=== PATIENT | male | born 1995 | race Caucasian/White ===

== ENCOUNTER 2024-10-25 23:25 | Emergency (ER) | payer SELFPAY ==
[2024-10-26] VITALS: BP 126/100; PULSE 89; RESP 16; TEMP 37.1; O2SAT 98; BMI 25.9
--- NOTE | 2024-10-26 01:17 | ED_ITS ---
HPI - Extremity Problem General Chief complaint: Extremity Problem,Nontraumatic Stated complaint: rt leg tingling, bulging disc Time Seen by Provider: 10/26/24 01:05 Source: patient and RN notes reviewed Mode of arrival: Ambulatory Limitations: no limitations History of Present Illness HPI Narrative: 29-year-old male no reported medical issues who presents with complaint of low back pain that radiates down his right leg with some numbness and tingling. States he was told he has a bulging disc in his back likely causing his symptoms. He has had symptoms for about a month to month and a half. States that recently he was had a dog and a cat in his chest lying supine and went to sit up which tweaked his back and increased his pain. He states he has been taking acetaminophen and extra-strength ibuprofen but without much improvement. He denies any new weakness in his lower extremity. He does have some numbness and tingling but states he can feel it. No loss of bowel or bladder control, no saddle anesthesia. Patient denies any other recent injuries or trauma. No fevers. Patient has not had any other known injuries but states he works for [employer] and did a lot of lifting he currently works in the food service worker industry. Patient denies any surgeries. No daily prescription medications. Does vape tobacco, occasional alcohol, uses marijuana no IV or injection drugs. Related Data Previous Rx's Medication Instructions Recorded gabapentin 300 mg capsule 300 mg PO TID #30 caps 10/26/24 hydrocodone 5 mg-acetaminophen 325 1 tab PO Q6H PRN pain #7 tabs 10/26/24 mg tablet Allergies Allergy/AdvReac Type Severity Reaction Status Date / Time No Known Drug Allergies Allergy Verified 10/25/24 23:59 Review of Systems Review of Systems ROS Unobtainable: All systems reviewed & are unremarkable except as noted in HPI and below Patient History Social History Smoking Status: Current every day smoker Smoking Status: Current every day smoker tobacco type: cigarettes and vaping Exam Narrative Exam Narrative: GENERAL: Alert and oriented x three, male in mild distress HEENT: Head normocephalic, atraumatic, EOMI, pupils reactive, face symmetric, moist mucous membranes NECK: Supple, full range of motion CARDIOVASCULAR: Regular rate and rhythm without murmurs, rubs or gallops. RESPIRATORY: Breath sounds equal bilaterally, no wheezes rales or rhonchi. ABDOMEN: Soft, nontender. Normoactive bowel sounds all 4 quadrants. No guarding or rebound, rigidity, no mass : No CVA tenderness BACK: No cervical, thoracic or lumbar vertebral point tenderness. Patient has normal range of motion. Patient's gait is normal. Rectal exam is deferred. Muscle strength is 5/5 in lower extremities, DTRs are 2/4 and lower extremities. Dorsalis pedis and tibialis pulses are 2+ and lower extremities. Sensation is intact in the lower extremities. EXTREMITIES: Normal range of motion, no clubbing or edema. Neurovascularly intact NEUROLOGICAL: Cranial nerves II through XII grossly intact. Moving all extremities SKIN: Warm, dry, no petechiae, no rashes or lesions. Initial Vital Signs Initial Vital Signs: Vital Signs Temperature 98.8 F 10/26/24 00:00 Pulse Rate 89 10/26/24 00:00 Respiratory Rate 16 10/26/24 00:00 Blood Pressure 126/100 H 10/26/24 00:00 Pulse Oximetry 98 10/26/24 00:00 Oxygen Delivery Method Room Air 10/26/24 00:00 Course Orders Ordered: Discontinued Medications Ketorolac Tromethamine (Ketorolac 30 Mg/Ml Vial) 15 mg IV NOW ONE Stop: 10/26/24 01:35 Last Admin: 10/26/24 01:39 Dose: Not Given Documented By: Ketorolac Tromethamine (Ketorolac 30 Mg/Ml Vial) 30 mg IM NOW ONE Stop: 10/26/24 01:38 Last Admin: 10/26/24 01:45 Dose: 30 mg Documented By: Vital Signs Vital signs: Vital Signs - 8 hr 10/26/24 00:00 10/26/24 01:52 Temperature 98.8 F Pulse Rate 89 85 Respiratory Rate 16 16 Blood Pressure 126/100 H 121/82 Pulse Oximetry 98 96 Oxygen Delivery Method Room Air Room Air MDM - Extremity (Nontraumatic) MDM Narrative Medical decision making narrative: 29-year-old male describing symptoms consistent with sciatica or radiculopathy patient notes exacerbated recently by trying to sit up from a supine position with a dog and a cat on his back. Patient does not have any red flag symptoms. Has been taking acetaminophen and extra-strength ibuprofen but without much improvement. Discussed can try some gabapentin we will give a short course of narcotics if this is inadequate. Did recommend patient follow up with primary care as he has only been seen in urgent care possibly follow up with PMR. Discussed return precautions all questions answered. Discharge Plan Departure Patient Disposition: Home Clinical Impression: Radicular low back pain Instructions: DI for Lumbar Radiculopathy Activity Restrictions/Additional Instructions: Follow up with primary care or PMR, contact is included below. Please call to set up an appointment. You can take gabapentin 1 tablet every 8 hours, this medication can be titrated upwards if it is helpful in his most useful if taken regularly. If inadequate for pain. You can take [place] 1 tablet every 6 hours as needed for pain. You can take ibuprofen with this medication up to 600 mg every 6 hours. This medication can make you sleepy do not drive, perform hazardous activities or make any major decisions while taking it. This medication will make you constipated please take a stool softener once to twice daily until stools are soft and regular. [facility] [place]. Please return for fevers, rapidly worsening symptoms, loss of bowel or bladder control, new weakness, loss of sensation, inability to lift or move your leg, elbow and a walker other new or concerning changes. Prescriptions: New gabapentin 300 mg capsule 300 mg PO TID Qty: 30 0RF hydrocodone-acetaminophen 5-325 mg tablet 1 tab PO Q6H PRN (Reason: pain) Qty: 7 0RF Referrals: Edenilson Olson DO [Physician] - Concha Morales MD [Primary Care Provider] - Stand Alone Forms: Patient Portal/API/Survey
[2024-10-26] MEDS: KETOROLAC 30 MG/ML VIAL IM (01:45)
[2024-10-26 01:52] VITALS: BP 121/82; PULSE 85; RESP 16; O2SAT 96
== END 2024-10-26 01:52 | disposition home or self-care (01) ==
PROVIDERS: Emergency Provider Emergency Medicine; Family Provider Family Medicine; PCP Family Medicine
DX: M54.50 Low back pain, unspecified (principal); F17.210 Nicotine dependence, cigarettes, uncomplicated
CPT/HCPCS: 96372; 99283; 99284; J1885

== ENCOUNTER 2024-11-13 13:30 | Emergency (ER) | payer OTHER, SELFPAY ==
[2024-11-13 13:51] VITALS: BP 119/78; PULSE 93; RESP 16; TEMP 36.6; O2SAT 100; BMI 25.9
--- NOTE | 2024-11-13 14:56 | PC.NURSE ---
Patient states that he had 4 near falls 2 to 3 months ago, and then lifted a whole bunch of heavy things and injured his back. Due to lack of insurance he didn't get assessed at that time, but was seen a couple weeks ago and prescribed muscle relaxers. He reports shooting pains down his right leg and says that his left leg is hurting now due to compensating for the right leg pain.
--- NOTE | 2024-11-13 16:28 | ED_ITS ---
<Statement entered by Juliano Winkler DO - 11/13/24 16:55> Dr. Winkler: I was immediately available in the department for consultation. I did not actually see the patient. HPI - Back Pain/Injury General Chief Complaint: Back Pain/Injury Stated Complaint: Lower back / Bilateral leg pain Time Seen by Provider: 11/13/24 15:15 History of Present Illness HPI Narrative: 29-year-old male presents to the ED with ongoing lower back pain for the last 2 months. Patient was seen in the ED on 10/25/24 for the same issue, prescribed short-term pain medications and advised to seek PCP consultation. Patient returns to the ED today for the same ongoing symptoms which is lower back pain, radiating down the back of his right leg. No numbness, tingling, weakness. No urinary hesitancy, urinary incontinence. No saddle paresthesias. No fever, chills. No new trauma. Related Data Previous Rx's Medication Instructions Recorded gabapentin 300 mg capsule 300 mg PO TID #30 caps 10/26/24 hydrocodone 5 mg-acetaminophen 325 1 tab PO Q6H PRN pain #7 tabs 10/26/24 mg tablet Allergies Allergy/AdvReac Type Severity Reaction Status Date / Time No Known Drug Allergies Allergy Verified 10/25/24 23:59 Review of Systems Constitutional Constitutional: Denies chills, Denies fatigue, Denies fever(s), Denies frequent falls, Denies lethargy and Denies weakness Eyes Eyes: Denies change in vision, Denies eye discharge, Denies irritation and Denies loss of vision ENT Ears, Nose, Mouth, and Throat: Denies change in voice, Denies dizziness, Denies neck pain, Denies sore throat and Denies throat swelling Cardiovascular Cardiovascular: Denies chest pain, Denies irregular heart rhythm, Denies lightheadedness, Denies palpitations, Denies dyspnea, Denies dyspnea on exertion and Denies orthopnea Respiratory Respiratory: Denies cough, Denies dyspnea, Denies dyspnea on exertion and Denies wheezing Gastrointestinal Gastrointestinal: Denies abdominal pain, Denies change in bowel habits, Denies diarrhea, Denies nausea and Denies vomiting Musculoskeletal Musculoskeletal: Denies neck pain and Denies numbness Comments: Low back pain, radiating to the right leg Integumentary/Breasts Skin/Breast: Denies pruritus, Denies erythema, Denies rash and Denies wounds Neurologic Neurologic: Denies behavioral changes, Denies confusion, Denies dizziness, Denies frequent falls, Denies loss of vision, Denies numbness and Denies weakness Psychiatric Psychiatric: Denies anxiety, Denies behavioral changes, Denies confusion, Denies depression, Denies homicidal ideation and Denies suicidal ideation Endocrine Endocrine: Denies fatigue, Denies flushing and Denies palpitations Hematologic/Lymphatic Hematologic/Lymphatic: Denies easy bruising Allergic/Immunologic Allergic/Immunologic: Denies urticaria, Denies throat swelling and Denies wheezing Patient History Social History Smoking Status: Current every day smoker Smoking Status: Current every day smoker tobacco type: cigarettes and vaping Exam Narrative Exam Narrative: Const General:?cooperative, healthy appearing and comfortable HENAK Head:?normal to inspection Ears:?hearing grossly normal bilaterally Nose:?external nose normal Face and sinus:?normal facial exam and sinuses nontender Mouth:?oral mucosae normal Throat:?posterior oropharynx normal Eyes General:?appearance normal, both eyes and all related structures Neck Neck:?normal visual inspection and no lymphadenopathy noted Resp Effort & Inspection:?normal respiratory effort Auscultation:?clear to auscultation bilaterally Cardio Rate:?regular rate Rhythm:?regular rhythm Musculoskeletal No midline tenderness to palpation. No paraspinal tenderness to palpation. Gait is normal. Neurovascularly intact. Neuro General:?patient alert, patient awake and patient oriented x3 Initial Vital Signs Initial Vital Signs: Vital Signs Temperature 97.8 F 11/13/24 13:51 Pulse Rate 93 H 11/13/24 13:51 Respiratory Rate 16 11/13/24 13:51 Blood Pressure 119/78 11/13/24 13:51 Pulse Oximetry 100 11/13/24 13:51 Oxygen Delivery Method Room Air 11/13/24 13:51 Course Vital Signs Vital signs: Vital Signs - 8 hr 11/13/24 13:51 Temperature 97.8 F Pulse Rate 93 H Respiratory Rate 16 Blood Pressure 119/78 Pulse Oximetry 100 Oxygen Delivery Method Room Air MDM - Back Pain/Injury MDM Narrative Medical decision making narrative: 29-year-old male presents to the ED with ongoing lower back pain for the last 2 months. History and physical exam consistent with ongoing lower back pain. Recommend ibuprofen, Tylenol, lidocaine patches, heat packs, rest. Recommend follow-up with PCP as soon as possible. Counseled patient that the PCP would be the best resource for him with respect to further evaluation and referrals. ED return precautions discussed with patient. Patient verbalized understanding. Medical records reviewed: Yes Discharge Plan Departure Patient Disposition: Home Clinical Impression: Back pain Qualifiers: Back pain location: low back pain Chronicity: acute Back pain laterality: right Sciatica presence: with sciatica Sciatica laterality: sciatica of right side Qualified Code(s): M54.41 - Lumbago with sciatica, right side Instructions: DI for Back Pain With Sciatica Activity Restrictions/Additional Instructions: You were evaluated in the ED today for lower back pain. It appears that this is an ongoing issue for which you were also seen 2 weeks ago. It is imperative that you follow-up with your primary care doctor for further evaluation referral to physical therapy. In the meanwhile, continue Tylenol and ibuprofen, lidocaine patches, heat packs. Return to the ED if you have worsening symptoms such as numbness, tingling, weakness. Prescriptions: No Action gabapentin 300 mg capsule 300 mg PO TID Qty: 30 0RF hydrocodone-acetaminophen 5-325 mg tablet 1 tab PO Q6H PRN (Reason: pain) Qty: 7 0RF Referrals: Concha Morales MD [Primary Care Provider] - Stand Alone Forms: Patient Portal/API/Survey
== END 2024-11-13 16:28 | disposition home or self-care (01) ==
PROVIDERS: Emergency Provider Student in an Organized Health Care Education/Training Program; Family Provider Family Medicine; PCP Family Medicine
DX: M54.41 Lumbago with sciatica, right side (principal)
CPT/HCPCS: 99281

== ENCOUNTER 2024-11-21 06:33 | Emergency (ER) | payer OTHER, SELFPAY ==
[2024-11-21 06:42] VITALS: BP 130/96; PULSE 99; RESP 24; TEMP 36.1; O2SAT 100; BMI 25.9
--- NOTE | 2024-11-21 06:46 | DI.CT.S_ITS ---
PROCEDURE: CT LUMBAR SPINE WO CON INDICATIONS: low back pain TECHNIQUE: Noncontrast 3 mm thick sections acquired from the T12 level to the sacrum. Sagittal and coronal reformats were constructed. For radiation dose reduction, the following was used: automated exposure control. COMPARISON: None. FINDINGS: Image quality: Excellent. Bones: There is normal bony alignment. No acute vertebral body compression fractures. No suspicious lytic or blastic bony lesions. No pars defects. Soft tissues: No retroperitoneal masses or hematomas. Visualized aorta is normal in caliber. Punctate right renal calculus. IMPRESSION: No visualized fracture or significant degenerative change. Dictated by: Lennie Nielsen M.D. on 11/21/2024 at 9:37 Approved by: Lennie Nielsen M.D. on 11/21/2024 at 9:38
--- NOTE | 2024-11-21 06:46 | ED.BACK ---
HPI - Back Pain/Injury <Juliano Winkler DO - Last Filed: 11/21/24 06:51> General Chief Complaint: Back Pain/Injury Stated Complaint: tingling in left leg, sharp pain in left toe Time Seen by Provider: 11/21/24 06:42 Source: patient History of Present Illness HPI Narrative: Patient is a 29-year-old male without any significant past medical history presents to the emergency department for persistent low back pain with radiation to his right leg, he has been seen here multiple times for the same, he states that he has an appointment with his primary care doctor tomorrow but given persistent symptoms he wanted to be evaluated today in the emergency department. States that he is still having the low back pain with radiates into his right leg, he states it is tingling but denies any actual weakness or loss of sensation. Patient denies any numbness to bilateral lower extremities, he states that he got very scared today because he felt tingling sensation to his left great toe. But denies any radiation of this to his left leg. He denies any bowel or urinary incontinence or retention. He denies any saddle paresthesias. Denies any new traumas or falls. Related Data Previous Rx's Medication Instructions Recorded gabapentin 300 mg capsule 300 mg PO TID #30 caps 10/26/24 hydrocodone 5 mg-acetaminophen 325 1 tab PO Q6H PRN pain #7 tabs 10/26/24 mg tablet gabapentin 300 mg capsule 300 mg PO TID #30 caps 11/21/24 hydrocodone 5 mg-acetaminophen 325 1 tab PO Q6H PRN pain #5 tabs 11/21/24 mg tablet prednisone 20 mg tablet 40 mg (2 x 20 mg) PO DAILY #8 tabs 11/21/24 Allergies Allergy/AdvReac Type Severity Reaction Status Date / Time No Known Drug Allergies Allergy Verified 10/25/24 23:59 Review of Systems <Juliano Winkler DO - Last Filed: 11/21/24 06:51> Review of Systems Narrative: General: Denies fever, chills, weight loss HEENT: Denies headache, eye drainage, eye irritation, head trauma, sore throat, voice change Cardiovascular: Denies any chest pain, palpitations, shortness of breath, tachycardia Respiratory: Denies any shortness of breath, cough, wheeze, stridor GI/: Denies any abdominal pain, nausea, vomiting, diarrhea, bright red blood per rectum, melanotic stools, urinary frequency, urinary retention, dysuria, hematuria MSK: Positive low back pain, positive right leg tingling Skin: Denies any rashes, lesions, discoloration Neuro: Denies any headache, lightheadedness, dizziness, fainting, weakness Psych: Denies SI/HI Patient History <Juliano Winkler DO - Last Filed: 11/21/24 06:51> Social History Smoking Status: Current every day smoker Smoking Status: Current every day smoker tobacco type: cigarettes and vaping Exam <Juliano Winkler DO - Last Filed: 11/21/24 06:51> Narrative Exam Narrative: General: Cooperative, comfortable, well-developed, not in acute distress HEENT: Normocephalic, atraumatic, PERRLA, normal sclera, eyelids normal, Neck: Active full range of motion, atraumatic Chest: Normal to inspection, negative crepitus, no overlying erythema ecchymosis Respiratory: Normal respiratory effort, not in acute respiratory distress, clear to auscultation bilaterally negative cough, wheeze, tachypnea, rhonchi, rales Cardiology: Regular rate rhythm negative gallop, murmur, rubs GI/: Normal to inspection, soft, nonrigid, no tenderness to palpation, exam deferred MSK: Full range of active range of motion of all 4 extremities, atraumatic, patient able to stand bear weight ambulate unassisted here in the emergency department, positive straight leg to the right, neurovascularly intact bilateral lower extremities no tenderness to palpation of the midline thoracic spine, minor tenderness to palpation of the paraspinal muscles on the right, however no overlying erythema ecchymosis or other gross deformity Skin: No rashes lesions noted Neuro: Alert awake oriented x3, moves all 4 extremities spontaneously, cranial nerves intact, able to answer all questions appropriately follows commands appropriately Psych: Cooperative, negative suicidal or homicidal ideations Initial Vital Signs Initial Vital Signs: Vital Signs Temperature 96.9 F L 11/21/24 06:42 Pulse Rate 99 H 11/21/24 06:42 Respiratory Rate 24 11/21/24 06:42 Blood Pressure 130/96 H 11/21/24 06:42 Pulse Oximetry 100 11/21/24 06:42 Oxygen Delivery Method Room Air 11/21/24 06:42 <Magi Connelly DO - Last Filed: 11/21/24 18:49> Initial Vital Signs Initial Vital Signs: Vital Signs Temperature 96.9 F L 11/21/24 06:42 Pulse Rate 99 H 11/21/24 06:42 Respiratory Rate 24 11/21/24 06:42 Blood Pressure 130/96 H 11/21/24 06:42 Pulse Oximetry 100 11/21/24 06:42 Oxygen Delivery Method Room Air 11/21/24 06:42 Course <Juliano Winkler DO - Last Filed: 11/21/24 06:51> Orders Ordered: Discontinued Medications Acetaminophen (Acetaminophen 325 Mg Tablet) 650 mg PO NOW ONE Stop: 11/21/24 06:47 Last Admin: 11/21/24 06:51 Dose: 650 mg Documented By: SANDEEP Diazepam (Diazepam 5 Mg Tablet) 5 mg PO NOW ONE Stop: 11/21/24 06:47 Last Admin: 11/21/24 06:52 Dose: 5 mg Documented By: SANDEEP Prednisone (Prednisone 20 Mg Tablet) 40 mg PO NOW ONE Stop: 11/21/24 06:47 Last Admin: 11/21/24 06:52 Dose: 40 mg Documented By: SANDEEP Vital Signs Vital signs: Vital Signs - 8 hr 11/21/24 06:42 Temperature 96.9 F L Pulse Rate 99 H Respiratory Rate 24 Blood Pressure 130/96 H Pulse Oximetry 100 Oxygen Delivery Method Room Air <Magi Connelly DO - Last Filed: 11/21/24 18:49> Orders Ordered: Discontinued Medications Acetaminophen (Acetaminophen 325 Mg Tablet) 650 mg PO NOW ONE Stop: 11/21/24 06:47 Last Admin: 11/21/24 06:51 Dose: 650 mg Documented By: SANDEEP Diazepam (Diazepam 5 Mg Tablet) 5 mg PO NOW ONE Stop: 11/21/24 06:47 Last Admin: 11/21/24 06:52 Dose: 5 mg Documented By: SANDEEP Prednisone (Prednisone 20 Mg Tablet) 40 mg PO NOW ONE Stop: 11/21/24 06:47 Last Admin: 11/21/24 06:52 Dose: 40 mg Documented By: SANDEEP Vital Signs Vital signs: Vital Signs - 8 hr 11/21/24 06:42 Temperature 96.9 F L Pulse Rate 99 H Respiratory Rate 24 Blood Pressure 130/96 H Pulse Oximetry 100 Oxygen Delivery Method Room Air MDM - Back Pain/Injury <Juliano Winkler, DO - Last Filed: 11/21/24 06:51> Differential Diagnosis Differential diagnosis: Likely lumbar radiculopathy, sciatica and strain of lumbar region [facility] Narrative Medical decision making narrative: 29-year-old male with a history of ongoing low back pain with sciatica/lumbar radiculopathy to the right for the past 2 months presents for persistent symptoms. He states that the symptoms are not getting any worse but are not getting better has an appointment with his primary care doctor tomorrow but given the fact that he started noticing tingling sensation to his left great toe he got worried and wanted to be evaluated. Patient has been seen here 2 times for the same, did obtain CT of his lumbar spine today. He denies any saddle paresthesias denies any bowel or urinary incontinence he is neurovascularly intact bilateral lower extremities. Patient did receive Valium prednisone and Tylenol here in the emergency department for symptomatic relief <Magi Connelly, DO - Last Filed: 11/21/24 18:49> [facility] Narrative Medical decision making narrative: 29-year-old male with a history of ongoing low back pain with sciatica/lumbar radiculopathy to the right for the past 2 months presents for persistent symptoms. He states that the symptoms are not getting any worse but are not getting better has an appointment with his primary care doctor tomorrow but given the fact that he started noticing tingling sensation to his left great toe he got worried and wanted to be evaluated. Patient has been seen here 2 times for the same, did obtain CT of his lumbar spine today. He denies any saddle paresthesias denies any bowel or urinary incontinence he is neurovascularly intact bilateral lower extremities. Patient did receive Valium prednisone and Tylenol here in the emergency department for symptomatic relief 11/21/24 Dr. Connelly [id number]: Patient signed out to myself by Dr. Winkler. Patient was seen and evaluated by myself. Head CT pending which shows mild spondylitic changes lumbar spine without acute traumatic injury intervertebral disc space narrowing L5-S1 with broad-based disc osteophyte complex and narrowing of the neural foramina posterior elements are intact. Patient has had some radicular symptoms but no symptoms today necessitating MRI or emergent surgery. Patient had Valium, prednisone and Tylenol here in the department. Discussed findings with patient need for follow up with primary care, discussed red flag symptoms. Patient has had some improvement in symptoms. He has an appointment tomorrow with Dr. Morales for his back. Discharge Plan Departure Patient Disposition: Home Clinical Impression: Lumbar radiculopathy Instructions: DI for Lumbar Radiculopathy Activity Restrictions/Additional Instructions: Follow up with Dr. Morales at your appointment tomorrow. You can take gabapentin 1 tablet every 8 hours as needed. This medication can be titrated upwards. Can continue with acetaminophen up to a 1000 mg every 6 hours and/or ibuprofen up to 600 mg every 6 hours as needed for pain. Take steroids until completed. Take this medication with food. [facility] [place] Please return for fevers, rapidly worsening symptoms, loss of bowel or bladder control, new weakness, loss of sensation, inability to lift or move your leg unable to ambulate or other new or concerning changes. Prescriptions: New gabapentin 300 mg capsule 300 mg PO TID Qty: 30 0RF prednisone 20 mg tablet 40 mg PO DAILY Qty: 8 0RF hydrocodone-acetaminophen 5-325 mg tablet 1 tab PO Q6H PRN (Reason: pain) Qty: 5 0RF No Action gabapentin 300 mg capsule 300 mg PO TID Qty: 30 0RF hydrocodone-acetaminophen 5-325 mg tablet 1 tab PO Q6H PRN (Reason: pain) Qty: 7 0RF Referrals: Concha Morales MD [Primary Care Provider] - Stand Alone Forms: Patient Portal/API/Survey
[2024-11-21] MEDS: ACETAMINOPHEN 325 MG TABLET 650 MG PO (06:51)
[2024-11-21] MEDS: predniSONE 20 MG TABLET 40 MG PO (06:52)
[2024-11-21] MEDS: diazePAM 5 MG TABLET PO (06:52)
[2024-11-21 08:18] VITALS: BP 127/75; PULSE 75; RESP 16; TEMP 36.6; O2SAT 99
== END 2024-11-21 08:19 | disposition home or self-care (01) ==
PROVIDERS: Emergency Provider Emergency Medicine; Family Provider Family Medicine; PCP Family Medicine
DX: M54.16 Radiculopathy, lumbar region (principal)
CPT/HCPCS: 72131; 99283; 99284

== ENCOUNTER 2024-12-08 14:20 | Emergency (ER) | payer OTHER, SELFPAY ==
[2024-12-08 14:30] VITALS: BP 115/84; PULSE 118; RESP 16; TEMP 37.1; O2SAT 98; BMI 25.9
[2024-12-08 16:13] LABS: Add Manual Diff / Slide Review NO; Basophils Absolute Auto 0 /uL (0-100); Basophils Percent Auto 0.3 % (0-2); Eosinophils Absolute Auto 0 /uL (0-450); Eosinophils Percent Auto 0.2 % (2-4); Hematocrit 42.1 % (41-53); Hemoglobin 14.4 g/dL (13.5-17.5); Lymphocytes Absolute Auto 800 /uL (1100-4500); Lymphocytes Percent Auto 5.4 % (25-40); Mean Corpuscular HGB Conc 34.1 % (30-36); Mean Corpuscular Hemoglobin 29.5 PG (26-34); Mean Corpuscular Volume 86.4 fL (80-100); Monocytes Absolute Auto 700 /uL (0-900); Monocytes Percent Auto 4.2 % (3-14); Neutrophils Absolute Auto 14000 /uL (1500-7000); Neutrophils Percent Auto 89.9 % (50-75); Platelet Count 240 X10^3/uL (150-400); Red Blood Cell Count 4.87 X10^6/uL (4.5-5.9); Red Cell Distribution Width 13.4 % (11.6-14.8); White Blood Cell Count 15.6 X10^3/uL (4.5-11.0)
[2024-12-08 16:27] LABS: Alanine Aminotransferase 30 IU/L (<50); Albumin 4.8 g/dL (3.5-5.0); Albumin Globulin Ratio 1.5 (1.0-2.8); Alkaline Phosphatase 59 U/L (38-126); Aspartate Aminotransferase 31 IU/L (17-59); BUN Creatinine Ratio 22.2 (6-22); Bilirubin Total 0.6 mg/dL (0.2-1.3); Blood Urea Nitrogen 16 mg/dL (9-20); Calcium 9.5 mg/dL (8.4-10.2); Carbon Dioxide 22 mmol/L (22-32); Chloride 105 mmol/L (98-107); Estimated Glomerular Filt Rate > 60 mL/min (>60); Globulin 3.2 g/dL (1.7-4.1); Glucose 79 mg/dL (70-100); HEMOLYSIS < 15 (0-50); Potassium 3.5 mmol/L (3.4-5.1); Sodium 138 mmol/L (137-145)
[2024-12-08] MEDS: KETOROLAC 30 MG/ML VIAL 15 MG IV (16:46)
--- NOTE | 2024-12-08 17:19 | DI.MRI.S_ITS ---
PROCEDURE: MR LUMBAR SPINE WO CON INDICATIONS: midline pain L5 right leg weakness after pop TECHNIQUE: Noncontrast sagittal T1 spin echo and T2 fast echo, sagittal STIR, and T2 fast spin echo through the lumbar spine. In cases with scoliosis, additional coronal T2 fast spin echo may be performed. COMPARISON: None. FINDINGS: Image quality: Excellent. Alignment and Curvature: There is normal bony alignment. Bone Marrow: Marrow is of normal overall signal. No acute vertebral body compression fractures. Spinal Cord: Conus medullaris terminates at the L1 level. Visualized cord demonstrates normal signal and size. Paraspinous Soft Tissues: No paravertebral masses. T12-L1: Normal appearance. L1-L2: Normal appearance. L2-L3: Normal appearance. L3-L4: Normal appearance. L4-L5: Mild disc desiccation. Mild diffuse disc bulge and bilateral facet arthrosis is seen with mild central canal stenosis and bilateral neural foraminal narrowing. L5-S1: There is loss of disc height and disc desiccation. Central to right-sided disc herniation and extrusion and bilateral facet arthrosis is noted causing severe narrowing of right neural recess and right neural foramen. Bulging disc is seen compressing right L5 and S1 nerve roots. IMPRESSION: 1. Central to right-sided disc herniation and extrusion at L5-S1 level causing mild central canal stenosis, severe narrowing of right neural recess and severe right neural foraminal narrowing at this level. There is likely compression of right L5 and S1 nerve roots. 2. Mild diffuse disc bulge and L4-5 level with mild central canal stenosis and mild bilateral neural foraminal narrowing. 3. No marrow edema. No acute compression fracture or spondylolisthesis. Dictated by: Sander cMkeon M.D. on 12/08/2024 at 18:35 Approved by: Sander Mckeon M.D. on 12/08/2024 at 18:42
[2024-12-08] MEDS: HYDROMORPHONE 0.5 MG INJ IV (17:34)
[2024-12-08 19:05] VITALS: BP 96/57; PULSE 78; RESP 16; O2SAT 100
--- NOTE | 2024-12-08 19:10 | ED_ITS ---
HPI - Back Pain/Injury General Chief Complaint: Back Pain/Injury Stated Complaint: back and lower leg px Time Seen by Provider: 12/08/24 15:55 History of Present Illness HPI Narrative: Patient is a healthy 29-year-old male presenting to day with back pain. He reports he has had back pain ongoing for the last couple of months he has been to the emergency department twice already in the year 2024 for the same. Initially started when he was lifting heavy weights. Today he just bent over and felt extreme burning in his back in his stomach and had some right leg weakness. No loss of urine or stool although nursing note reports he would urine loss and has intense pain going down his right leg. He has had CTs here previously. Related Data Previous Rx's Medication Instructions Recorded gabapentin 300 mg capsule 300 mg PO TID #30 caps 10/26/24 hydrocodone 5 mg-acetaminophen 325 1 tab PO Q6H PRN pain #7 tabs 10/26/24 mg tablet gabapentin 300 mg capsule 300 mg PO TID #30 caps 11/21/24 hydrocodone 5 mg-acetaminophen 325 1 tab PO Q6H PRN pain #5 tabs 11/21/25 mg tablet prednisone 20 mg tablet 40 mg (2 x 20 mg) PO DAILY #8 tabs 11/21/24 gabapentin 300 mg capsule 300 mg PO TID #60 caps 12/08/24 hydrocodone 5 mg-acetaminophen 325 1 tab PO Q6H PRN pain #20 tabs 12/08/24 mg tablet prednisone 20 mg tablet 40 mg (2 x 20 mg) PO DAILY #10 tabs 12/08/24 Allergies Allergy/AdvReac Type Severity Reaction Status Date / Time No Known Drug Allergies Allergy Verified 10/25/24 23:59 Patient History Social History Smoking Status: Current every day smoker Smoking Status: Current every day smoker tobacco type: cigarettes and vaping Exam Initial Vital Signs Initial Vital Signs: Vital Signs Temperature 98.7 F 12/08/24 14:30 Pulse Rate 118 H 12/08/24 14:30 Respiratory Rate 16 12/08/24 14:30 Blood Pressure 115/84 12/08/24 14:30 Pulse Oximetry 98 12/08/24 14:30 Oxygen Delivery Method Room Air 12/08/24 14:30 GENERAL: Well-appearing, well-nourished and in no acute distress. CARDIOVASCULAR: peripheral pulses in tact, cap refill <2 sec RESPIRATORY: No respiratory distress, speaks in full sentences without difficulty [ABDOMEN: Soft, nontender, no guarding or rebound] BACK: Midline tenderness no step-off EXTREMITIES: Normal range of motion, no clubbing or edema. Neurovascularly intact NEUROLOGICAL: Cranial nerves II through XII grossly intact. Normal gait and speech. Sensation in lower extremities intact sensation in saddle area intact able to lift legs off gurney SKIN: Warm, dry, no petechiae, no rashes or lesions. Course Orders Ordered: Discontinued Medications Hydrocodone Bitart/Acetaminophen (Hydrocodone/Acet 5/325 Prepack) 1 bottle MISC DIRECTED ONE Stop: 12/08/24 19:28 Last Admin: 12/08/24 19:46 Dose: 1 bottle Documented By: RALEIGH Dexamethasone (Dexamethasone 10 Mg/Ml Vial) 10 mg IV NOW ONE Stop: 12/08/24 19:28 Last Admin: 12/08/24 19:46 Dose: 10 mg Documented By: RALEIGH Hydromorphone HCl (Hydromorphone 0.5 Mg Inj) 0.5 mg IV NOW ONE Stop: 12/08/24 17:20 Last Admin: 12/08/24 17:34 Dose: 0.5 mg Documented By: RALEIGH Hydromorphone HCl (Hydromorphone 1 Mg Inj) 1 mg IV NOW ONE Stop: 12/08/24 19:28 Last Admin: 12/08/24 19:46 Dose: 1 mg Documented By: RALEIGH Ketorolac Tromethamine (Ketorolac 30 Mg/Ml Vial) 15 mg IV NOW ONE Stop: 12/08/24 16:20 Last Admin: 12/08/24 16:46 Dose: 15 mg Documented By: RALEIGH Vital Signs Vital signs: Vital Signs - 8 hr 12/08/24 14:30 12/08/24 19:05 Temperature 98.7 F Pulse Rate 118 H 78 Respiratory Rate 16 16 Blood Pressure 115/84 96/57 L Pulse Oximetry 98 100 Oxygen Delivery Method Room Air Room Air MDM - Back Pain/Injury Lab Data 12/08/24 16:06 12/08/24 16:06 Labs: Lab Results 12/08/24 Range/Units 16:06 WBC 15.6 H (4.5-11.0) X10^3/uL RBC 4.87 (4.5-5.9) X10^6/uL Hgb 14.4 (13.5-17.5) g/dL Hct 42.1 (41-53) % MCV 86.4 (80-100) fL MCH 29.5 (26-34) PG MCHC 34.1 (30-36) % RDW 13.4 (11.6-14.8) % Plt Count 240 (150-400) X10^3/uL Neut % (Auto) 89.9 H (50-75) % Lymph % (Auto) 5.4 L (25-40) % [place] % (Auto) 4.2 (3-14) % Eos % (Auto) 0.2 L (2-4) % Baso % (Auto) 0.3 (0-2) % Neut # (Auto) 07239 H (1690-5233) /uL Lymph # (Auto) 800 L (6514-2778) /uL [place] # (Auto) 700 (0-900) /uL Eos # (Auto) 0 (0-450) /uL Baso # (Auto) 0 (0-100) /uL Sodium 138 (137-145) mmol/L Potassium 3.5 (3.4-5.1) mmol/L Chloride 105 (98-107) mmol/L Carbon Dioxide 22 (22-32) mmol/L BUN 16 (9-20) mg/dL Creatinine 0.72 (0.66-1.25) mg/dL Estimated GFR > 60 (>60) mL/min BUN/Creatinine Ratio 22.2 H (6-22) Glucose 79 (70-100) mg/dL Calcium 9.5 (8.4-10.2) mg/dL Total Bilirubin 0.6 (0.2-1.3) mg/dL AST 31 (17-59) IU/L ALT 30 (<50) IU/L Alkaline Phosphatase 59 (38-126) U/L Total Protein 8.0 (6.3-8.2) g/dL Albumin 4.8 (3.5-5.0) g/dL Globulin 3.2 (1.7-4.1) g/dL Albumin/Globulin Ratio 1.5 (1.0-2.8) Imaging Data MR lumbar: Radiologist's Impression: PROCEDURE: MR LUMBAR SPINE WO CON INDICATIONS: midline pain L5 right leg weakness after pop TECHNIQUE: Noncontrast sagittal T1 spin echo and T2 fast echo, sagittal STIR, and T2 fast spin echo through the lumbar spine. In cases with scoliosis, additional coronal T2 fast spin echo may be performed. COMPARISON: None. FINDINGS: Image quality: Excellent. Alignment and Curvature: There is normal bony alignment. Bone Marrow: Marrow is of normal overall signal. No acute vertebral body compression fractures. Spinal Cord: Conus medullaris terminates at the L1 level. Visualized cord demonstrates normal signal and size. Paraspinous Soft Tissues: No paravertebral masses. T12-L1: Normal appearance. L1-L2: Normal appearance. L2-L3: Normal appearance. L3-L4: Normal appearance. L4-L5: Mild disc desiccation. Mild diffuse disc bulge and bilateral facet arthrosis is seen with mild central canal stenosis and bilateral neural foraminal narrowing. L5-S1: There is loss of disc height and disc desiccation. Central to right- sided disc herniation and extrusion and bilateral facet arthrosis is noted causing severe narrowing of right neural recess and right neural foramen. Bulging disc is seen compressing right L5 and S1 nerve roots. IMPRESSION: 1. Central to right-sided disc herniation and extrusion at L5-S1 level causing mild central canal stenosis, severe narrowing of right neural recess and severe right neural foraminal narrowing at this level. There is likely compression of right L5 and S1 nerve roots. 2. Mild diffuse disc bulge and L4-5 level with mild central canal stenosis and mild bilateral neural foraminal narrowing. 3. No marrow edema. No acute compression fracture or spondylolisthesis. Dictated by: Sander Mckeon M.D. on 12/08/2024 at 18:35 MDM Narrative Medical decision making narrative: Patient is a 29-year-old male having on going back issues after initial injury of lifting heavy weights. He was stopped lifting heavy weights he was doing some stretches and exercise on his own. He bent down today and immediately felt pop and burning sensation Blood work has been reviewed he does have leukocytosis 15 but no anemia or other abnormality CMPIs within normal limits MRI shows L4-L5: Disc bulge also L5-S1 loss of disc height and central to right-sided disc herniation and extrusion with severe narrowing. Patient has no evidence of cauda equina he was some mild leukocytosis but no evidence of an epidural abscess or other symptoms. He was found to have a disc herniation. At this time refer to spine Pain management. He was previously on gabapentin 3 times a day we will refill this for him given him dose of dexamethasone and Dilaudid here in the ED which has helped along with Toradol. Will start him on pain medicine at home along with home prednisone. Strict return precautions. Discharge Plan Departure Patient Disposition: Home Clinical Impression: Herniation of intervertebral disc between L4 and L5 Activity Restrictions/Additional Instructions: *You have been diagnosed with L4-L5 disc herniation L5-S1 herniation *What to do: At this time I do recommend that you be evaluated by Orthopedic surgery. *Continue to take medications as directed Prednisone 40 mg once a day for days Gabapentin 300 mg 3 times a day [place] 1 tablet every 6 hours if needed for severe pain *Follow up with your primary care provider in 2-3 days or call [phone] [facility] [address] Torres or formerly [facility] Dr. Resendiz, *Return to ER if you should have increasing leg weakness loss of urine [or] any new, worsening or concerning symptoms CONTROLLED SUBSTANCE DISCHARGE (Narcotoic/benzodiazepine/Flexeril/Phenergan) 1. You have been prescribed narcotic medications, it does have acetaminophen/Tylenol/paracetamol in it, DO NOT TAKE MORE THAN 4,00mg in 24 hours of Tylenol. TRAMADOL DOES NOT CONTAIN TYLENOL 2. Please understand that we cannot provide further refills of narcotics, benzodiazepines or controlled substances through the ED and her pain management will need to be through your provider. 3. While on these medications you cannot drive or operate heavy machinery. 4. You cannot sign legal documents or perform any duties such as this. 5. As long as you're taking opiate pain medications he should also be taking a stool softener such as Colace, Dulcolax, MiraLAX or prune juice, to help avoid constipation. Prescriptions: New hydrocodone-acetaminophen 5-325 mg tablet 1 tab PO Q6H PRN (Reason: pain) Qty: 20 0RF prednisone 20 mg tablet 40 mg PO DAILY Qty: 10 0RF gabapentin 300 mg capsule 300 mg PO TID Qty: 60 0RF No Action gabapentin 300 mg capsule 300 mg PO TID Qty: 30 0RF hydrocodone-acetaminophen 5-325 mg tablet 1 tab PO Q6H PRN (Reason: pain) Qty: 7 0RF gabapentin 300 mg capsule 300 mg PO TID Qty: 30 0RF prednisone 20 mg tablet 40 mg PO DAILY Qty: 8 0RF hydrocodone-acetaminophen 5-325 mg tablet 1 tab PO Q6H PRN (Reason: pain) Qty: 5 0RF Referrals: Concha Morales MD [Primary Care Provider] - Stand Alone Forms: Patient Portal/API/Survey
[2024-12-08] MEDS: DEXAMETHASONE 10 MG/ML VIAL IV (19:46)
[2024-12-08] MEDS: HYDROMORPHONE 1 MG INJ IV (19:46)
[2024-12-08] MEDS: HYDROCODONE/ACET 5/325 PREPACK 1 BOTTLE MISC (19:46)
== END 2024-12-08 20:01 | disposition home or self-care (01) ==
PROVIDERS: Emergency Provider Emergency Medicine; Family Provider Family Medicine; PCP Family Medicine
DX: M51.26 Other intervertebral disc displacement, lumbar region (principal); F17.290 Nicotine dependence, other tobacco product, uncomplicated; F17.210 Nicotine dependence, cigarettes, uncomplicated
CPT/HCPCS: 36415; 72148; 80053; 85025; 96374; 96375; 96376; 99284; J1100; J1171; J1885

== ENCOUNTER 2025-01-05 23:33 | Emergency (ER) | payer OTHER, SELFPAY ==
[2025-01-05 23:45] VITALS: BP 141/72; PULSE 91; RESP 20; TEMP 36.6; O2SAT 99; BMI 25.9
--- NOTE | 2025-01-06 02:04 | ED.BACK ---
HPI - Back Pain/Injury General Chief Complaint: Back Pain/Injury Stated Complaint: Lower back pain, numbness in limbs Time Seen by Provider: 01/06/25 01:24 Source: patient History of Present Illness HPI Narrative: 29-year-old gentleman complaining of low back pain with numbness in the legs. He has been seen in the emergency department for the same on October 26, November 13 of November 21 and December 08. He is had CT and MRI scans. MRI shows central to right-sided disc herniation and extrusion at L5-S1 level causing mild central canal stenosis, severe narrowing of the right neural recess and severe right neural foramina narrowing. Likely compression of right L5 and S1 nerve roots. Also has a mild diffuse disc bulge at L4-5 with mild central canal stenosis. Original injury was while he was moving furniture back in September. He is an appointment with his primary care physician on the of this month for the 1st time. Over the last 24 hours he is simply had increasing pain and paresthesias and was told to return if this gets worse. He has been using ibuprofen, Tylenol, gabapentin occasionally use a muscle relaxer with some success. He is not having any classic cauda equina symptoms and does not have any other red flags for epidural abscess or diskitis. Related Data Previous Rx's Medication Instructions Recorded gabapentin 300 mg capsule 300 mg PO TID #30 caps 10/26/24 hydrocodone 5 mg-acetaminophen 325 1 tab PO Q6H PRN pain #7 tabs 10/26/24 mg tablet gabapentin 300 mg capsule 300 mg PO TID #30 caps 11/21/24 hydrocodone 5 mg-acetaminophen 325 1 tab PO Q6H PRN pain #5 tabs 11/21/24 mg tablet prednisone 20 mg tablet 40 mg (2 x 20 mg) PO DAILY #8 tabs 11/21/24 gabapentin 300 mg capsule 300 mg PO TID #60 caps 12/08/24 hydrocodone 5 mg-acetaminophen 325 1 tab PO Q6H PRN pain #20 tabs 12/08/24 mg tablet prednisone 20 mg tablet 40 mg (2 x 20 mg) PO DAILY #10 tabs 12/08/24 dexamethasone 4 mg tablet 10 mg (2.5 x 4 mg) PO DAILY #5 tabs 01/06/25 Allergies Allergy/AdvReac Type Severity Reaction Status Date / Time No Known Drug Allergies Allergy Verified 10/25/24 23:59 Review of Systems Review of Systems Narrative: Pertinent positive and negative findings as per HPI Patient History tobacco type: cigarettes and vaping Exam Initial Vital Signs Initial Vital Signs: Vital Signs Temperature 97.9 F 01/05/25 23:45 Pulse Rate 91 H 01/05/25 23:45 Respiratory Rate 20 01/05/25 23:45 Blood Pressure 141/72 H 01/05/25 23:45 Pulse Oximetry 99 01/05/25 23:45 Oxygen Delivery Method Room Air 01/05/25 23:45 General: Alert appropriate in no acute distress Respiratory: Able to speak in full sentences, no obvious respiratory distress Skin: No obvious rashes, warm and dry Neurologic: Grossly intact no obvious asymmetries or abnormalities, pain in rolling to the side but he does have sensation in toes. Patellar and ankle reflexes are appropriate. He describes decreased sensation down the posterior portion of the leg worse on the right. Psych: appropriate insight and affect, cooperative Course Vital Signs Vital signs: Vital Signs - 8 hr 01/05/25 23:45 Temperature 97.9 F Pulse Rate 91 H Respiratory Rate 20 Blood Pressure 141/72 H Pulse Oximetry 99 Oxygen Delivery Method Room Air MDM - Back Pain/Injury MDM Narrative Medical decision making narrative: 29-year-old young man with back pain since early September, sciatic radicular pain. MRI in mid November with results described above. Finally has not appointment with his primary care physician on the . Can not get into any specialty care until he has been evaluated by his primary care physician. He has been managing fairly well ibuprofen, Tylenol, gabapentin and occasional muscle relaxers. He declines narcotics recognizing risk for addiction. In the past he has had some success with steroids and is willing to give that a try. We will recommend 3 days of dexamethasone. He will be given injection of Toradol this is also been helpful in the past. Currently not meeting risk factors concerning for acute cauda equina syndrome epidural abscess. Additional imaging is not indicated at this time. Patient will not need hospitalization. Did discuss continued use of ibuprofen and Tylenol. Encouraged him to keep his appointment with his primary care physician on the . Patient is safe for discharge Discharge Plan Departure Patient Disposition: Home Clinical Impression: Lumbar radicular pain Instructions: DI for Back Pain With Sciatica Activity Restrictions/Additional Instructions: Thank you for coming in today. I am sorry that you are continuing to suffer with this radicular back pain. Your exam does not suggest dramatic worsening or need for additional imaging. I suspect that you have slightly pulled or inflamed the area of concern. I have given you a dose of dexamethasone in the emergency department and written a prescription for doses tomorrow evening and the following evening. Prescription was electronically transmitted to [facility] in [place] You were given a shot of Toradol to help with the pain tonight Using 400 mg of ibuprofen (2 [id number] pills) and 1 Tylenol every 6 hours can be very helpful in controlling pain. If you have not tried ice to your lower back, it is worth a try. Please do keep your appointment with your primary care physician on the for referral onto specialty consultation Prescriptions: New dexamethasone 4 mg tablet 10 mg PO DAILY Qty: 5 0RF No Action gabapentin 300 mg capsule 300 mg PO TID Qty: 30 0RF hydrocodone-acetaminophen 5-325 mg tablet 1 tab PO Q6H PRN (Reason: pain) Qty: 7 0RF gabapentin 300 mg capsule 300 mg PO TID Qty: 30 0RF prednisone 20 mg tablet 40 mg PO DAILY Qty: 8 0RF hydrocodone-acetaminophen 5-325 mg tablet 1 tab PO Q6H PRN (Reason: pain) Qty: 5 0RF hydrocodone-acetaminophen 5-325 mg tablet 1 tab PO Q6H PRN (Reason: pain) Qty: 20 0RF prednisone 20 mg tablet 40 mg PO DAILY Qty: 10 0RF gabapentin 300 mg capsule 300 mg PO TID Qty: 60 0RF Referrals: Concha Morales MD [Primary Care Provider] - Stand Alone Forms: Patient Portal/API/Survey
[2025-01-06] MEDS: dexAMETHasone 4 MG TABLET 12 MG PO (02:34)
[2025-01-06] MEDS: KETOROLAC 30 MG/ML VIAL IM (02:35)
[2025-01-06 02:45] VITALS: BP 102/68; PULSE 66; RESP 12; O2SAT 98
== END 2025-01-06 02:46 | disposition home or self-care (01) ==
PROVIDERS: Emergency Provider Emergency Medicine; Family Provider Family Medicine; PCP Family Medicine
DX: M54.16 Radiculopathy, lumbar region (principal); R20.2 Paresthesia of skin; F17.210 Nicotine dependence, cigarettes, uncomplicated
CPT/HCPCS: 96372; 99283; J1885